=== PATIENT | female | born 1990 ===

== ENCOUNTER 2022-03-14 13:31 | Emergency (ER) | payer OTHER ==
[~2022-03-14] VITALS: Ht 157.5 cm; Wt 65.3 kg
[2022-03-14] MEDS ORDERED: BUTALB-ACETAMI1 EACH PO (18:16)
== END 2022-03-14 18:20 | disposition home or self-care (01) ==
LOC: ER 13:31
DX: G43.909 Migraine, unspecified, not intractable, without status migrainosus (principal)